=== PATIENT | female | born 2000 | race Caucasian/White ===

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

== ENCOUNTER 2018-05-17 07:42 | Outpatient (CLI) | payer BC ==
[~2018-05-17] VITALS: Ht 162.6 cm; Wt 65.0 kg
[~2018-05-17 07:42] MED LIST changes: +DEPO-PROVER150 MG/M1 IM; -DEPO-SUBQ104 MG/0.6 SC; -FLAX OIL1000 MG PO; +FLAXSEED OIL1000 MG PO
[2018-05-17 07:55] VITALS: BP 121/72; PULSE 118; TEMP 97.9
[2018-05-17] MEDS ORDERED: FOCALIN XR30 MG PO (08:15)
[2018-05-17] MEDS ORDERED: DEXMETHYLPHENIDA5 MG PO (08:16)
[2018-05-17] MEDS ORDERED: LAMICTAL 25MG T25 MG PO (08:31)
[2018-05-17] MEDS ORDERED: SODIUM CHLORIDE1 GM PO (08:33)
[2018-05-23 16:16] LABS: ADRENOCORTICOTROPIC HORMONE 15 pg/mL (())
== END 2018-05-17 09:54 | disposition home or self-care (01) ==
LOC: EUO 07:42
PROVIDERS: Family Medicine
DX: I95.9 Hypotension, unspecified (principal)
CPT/HCPCS: J0834

== ENCOUNTER 2018-08-19 14:51 | Outpatient (CLI) | payer BC ==
[~2018-08-19 14:51] MED LIST changes: +DEXMETHYLPHENIDA5 MG PO; +FOCALIN XR30 MG PO; +SODIUM CHLORIDE1 GM PO
[2018-08-19 16:00] VITALS: BP 118/71; PULSE 83; TEMP 98.4
== END 2018-08-19 16:43 | disposition home or self-care (01) ==
LOC: EUO 14:51
DX: I95.1 Orthostatic hypotension (principal); I49.8 Other specified cardiac arrhythmias
CPT/HCPCS: J7030

== ENCOUNTER 2019-05-02 15:56 | Outpatient (CLI) | payer BC ==
[~2019-05-02] VITALS: Ht 162.6 cm; Wt 75.5 kg
[2019-05-02 16:35] VITALS: BP 111/65; PULSE 93; TEMP 98.9
[2019-05-02] MEDS ORDERED: TOPROL XL 50MG50 MG PO (17:41)
[2019-05-02] MEDS ORDERED: NATURAL MAGNES200 MG PO (17:41)
[2019-05-02] MEDS ORDERED: CALCIUM 600MG+D1 TAB PO (17:42)
== END 2019-05-02 17:42 | disposition home or self-care (01) ==
LOC: EUO 15:56
DX: I95.1 Orthostatic hypotension (principal)
CPT/HCPCS: J7030

== ENCOUNTER 2019-09-25 13:58 | Outpatient (CLI) | payer BC ==
[~2019-09-25 13:58] MED LIST changes: +CALCIUM 600MG+D1 TAB PO; +NATURAL MAGNES200 MG PO; +TOPROL XL 50MG50 MG PO
[2019-09-25] MEDS ORDERED: FLORINEF ACETA0.1 MG PO (14:48)
[2019-09-25 14:50] VITALS: BP 111/81; PULSE 76; TEMP 99.2
[2019-09-25 16:21] VITALS: BP 112/73; PULSE 69; TEMP 98.7
== END 2019-09-25 16:21 | disposition home or self-care (01) ==
LOC: EUO 13:58
DX: I95.1 Orthostatic hypotension (principal)
CPT/HCPCS: J7030

== ENCOUNTER 2020-04-14 10:16 | Outpatient (CLI) | payer BC ==
[~2020-04-14] VITALS: Ht 162.6 cm; Wt 73.6 kg
[2020-04-14 11:59] VITALS: BP 111/60; PULSE 79; TEMP 99.1
== END 2020-04-14 11:59 | disposition home or self-care (01) ==
LOC: EUO 10:16
DX: I49.8 Other specified cardiac arrhythmias (principal); E86.0 Dehydration
CPT/HCPCS: J7030

== ENCOUNTER 2020-06-17 15:00 | Emergency (ER) | payer SELFPAY ==
[~2020-06-17] VITALS: Ht 165.1 cm; Wt 68.2 kg
[2020-06-17 15:06] VITALS: TEMP 98.2
[2020-06-17 16:10] VITALS: BP 116/76; PULSE 60
== END 2020-06-17 16:10 | disposition home or self-care (01) ==
LOC: COL.ER 15:00
DX: G43.909 Migraine, unspecified, not intractable, without status migrainosus (principal); G51.0 Bell's palsy; Z88.8 Allergy status to other drugs, medicaments and biological substances; Z91.02 Food additives allergy status

== ENCOUNTER 2020-07-26 09:55 | Outpatient (CLI) | payer BC ==
[~2020-07-26] VITALS: Ht 165.1 cm; Wt 77.0 kg
[2020-07-26 10:34] VITALS: BP 104/70; PULSE 97; TEMP 98.8
[2020-07-26] MEDS ORDERED: BACTRIM DS 8001 TAB PO (10:41)
[2020-07-26] MEDS ORDERED: FOSAMAX 70MG TA70 MG PO (10:43)
[2020-07-26] MEDS ORDERED: DEPO-PROVER150 MG/M1 IM (10:44)
== END 2020-07-26 11:35 | disposition home or self-care (01) ==
LOC: EUO 09:55
DX: I95.1 Orthostatic hypotension (principal); E86.0 Dehydration
CPT/HCPCS: J7030

== ENCOUNTER 2020-07-28 11:15 | Outpatient (RCR) | payer BC ==
[~2020-07-28 11:15] MED LIST changes: +BACTRIM DS 8001 TAB PO; +FOSAMAX 70MG TA70 MG PO
== END 2020-09-05 | disposition home or self-care (01) ==
LOC: WSST
DX: R13.12 Dysphagia, oropharyngeal phase (principal)

== ENCOUNTER 2021-07-22 18:42 | Outpatient (CLI) | payer BC ==
[~2021-07-22] VITALS: Ht 165.1 cm; Wt 70.9 kg
[~2021-07-22 18:42] MED LIST changes: -CALCIUM 600MG+D1 TAB PO; +CALCIUM LACTATE PO; -DEXMETHYLPHENIDA5 MG PO; +FOCALIN XR20 MG PO
[2021-07-22 18:53] VITALS: BP 108/64; PULSE 87; TEMP 98.2
[2021-07-22 19:15] VITALS: BP 116/71; PULSE 92
[2021-07-22] MEDS ORDERED: DIGESTIVE ENZYMES (19:20)
[2021-07-22] MEDS ORDERED: PROBIOTIC BLEN1 EACH PO (19:21)
[2021-07-22] MEDS ORDERED: VITAMINC1000TA PO (19:22)
[2021-07-22] MEDS ORDERED: VITAMIN B COMPL1 SGL PO (19:23)
[2021-07-22] MEDS ORDERED: VITAMIN D31000 IU PO (19:23)
[2021-07-22] MEDS ORDERED: [UNRECOGNIZED DRUG - OTHER] PO (19:24)
[2021-07-22] MEDS ORDERED: [UNRECOGNIZED DRUG - OTHER] PO (19:25)
[2021-07-22] MEDS ORDERED: THE MEDICINE S200 M2 PO (19:25)
[2021-07-22] MEDS ORDERED: GLUCOSAMINE & C1 TAB PO (19:26)
[2021-07-22] MEDS ORDERED: NATURAL POTASS595 MG PO (19:27)
[2021-07-22] MEDS ORDERED: L-GLUTAMINE500 M5 PO (19:27)
[2021-07-22] MEDS ORDERED: MAGNESIUM GLYCINATE PO (19:29)
[2021-07-22] MEDS ORDERED: SELENIUM PO (19:29)
[2021-07-22 19:30] VITALS: BP 109/60; PULSE 96
[2021-07-22] MEDS ORDERED: [UNRECOGNIZED DRUG - OTHER] PO (19:30)
[2021-07-22 19:45] VITALS: BP 114/60; PULSE 91
== END 2021-07-22 20:02 | disposition home or self-care (01) ==
LOC: EUO 18:42
DX: K58.9 Irritable bowel syndrome, unspecified (principal); I95.1 Orthostatic hypotension
CPT/HCPCS: J7030

== ENCOUNTER → 2021-07-25 | Outpatient (CLI) | payer BC ==
[~2021-07-25] MED LIST changes: +DIGESTIVE ENZYMES; +GLUCOSAMINE & C1 TAB PO; +L-GLUTAMINE500 M5 PO; +MAGNESIUM GLYCINATE PO; +NATURAL POTASS595 MG PO; +PROBIOTIC BLEN1 EACH PO; +SELENIUM PO; +THE MEDICINE S200 M2 PO; +VITAMIN B COMPL1 SGL PO; +VITAMINC1000TA PO; +[UNRECOGNIZED DRUG - OTHER] PO; +[UNRECOGNIZED DRUG - OTHER] PO; +[UNRECOGNIZED DRUG - OTHER] PO
== END ==
LOC: COL.RAD 11:00
DX: R10.9 Unspecified abdominal pain (principal)
CPT/HCPCS: Q9967